=== PATIENT | male | born 1945 | race Hispanic/Latino ===

== ENCOUNTER 2019-02-21 12:21 | Emergency (ER) | payer BC, MEDICARE ==
--- NOTE | 2019-02-21 12:37 | Emergency Department Report ---
Blank Doc - Documentation Documentation: 73-year-old male that presents with dizziness. Denies any other symptoms. This initial assessment/diagnostic orders/clinical plan/treatment(s) is/are subject to change based on patient's health status, clinical progression and re- assessment by fellow clinical providers in the ED. Further treatment and workup at subsequent clinical providers discretion. Patient/guardians urged not to elope from the ED as their condition may be serious if not clinically assessed and managed. Initial orders include: 1- Patient sent to MAIN for further evaluation and treatment 2- labs 3- EKG 4- UA
[2019-02-21 13:18] LABS: Basophils # (Auto) 0.1 K/mm3 (0.0-0.1); Basophils % (Auto) 1.2 % (0.0-1.8); Eosinophils # (Auto) 0.2 K/mm3 (0.0-0.4); Hematocrit 40.6 % (35.5-45.6); Hemoglobin 13.6 gm/dl (11.8-15.2); Lymphocytes # (Auto) 2.2 K/mm3 (1.2-5.4); Lymphocytes % (Auto) 37.1 % (13.4-35.0); Mean Corpuscular HGB Conc 33 % (32-34); Mean Corpuscular Volume 83 fl (84-94); Monocytes # (Auto) 0.4 K/mm3 (0.0-0.8); Platelet Count 288 K/mm3 (140-440); Red Blood Count 4.92 M/mm3 (3.65-5.03); Red Cell Distribution Width 14.3 % (13.2-15.2)
--- NOTE | 2019-02-21 13:26 | XRay Report ---
CHEST 1 VIEW INDICATION: Lightheadedness/Dizziness. COMPARISON: None. FINDINGS: Support devices: None. Heart: Normal. Lungs/Pleura: No acute pulmonary or pleural findings. There are low lung volumes. IMPRESSION: 1. No acute findings. Signer Name: Erich Elizalde MD Signed: 02/21/2019 1:21 PM Workstation Name: [id number]
[2019-02-21 13:31] LABS: INR 1.05 (0.87-1.13)
[2019-02-21] MEDS ORDERED: MECLIZINE 25 MG TAB PO ONE (13:31)
[2019-02-21] MEDS ORDERED: ONDANSETRON 4 MG ODT TAB PO ONE (13:31)
[2019-02-21 13:34] VITALS: BP 133/67
[2019-02-21 13:42] LABS: Partial Thromboplastin Time 27.3 Sec. (24.2-36.6)
[2019-02-21 13:43] LABS: Alanine Aminotransferase 12 units/L (7-56); Albumin 4.3 g/dL (3.9-5); BUN/Creatinine Ratio 11; Blood Urea Nitrogen 10 mg/dL (9-20); Hemolysis Index 7
--- NOTE | 2019-02-21 13:57 | Cat Scan Report ---
CT HEAD WITHOUT CONTRAST INDICATION / CLINICAL INFORMATION: dizziness, blurry vision. TECHNIQUE: All CT scans at this location are performed using CT dose reduction for ALARA by means of automated e xposure control. COMPARISON: None available. FINDINGS: HEMORRHAGE: No evidence of intracranial hemorrhage or extra-axial fluid collection. EXTRA-AXIAL SPACES: Cortical sulci and sylvian fissures are mildly enlarged reflecting a degree of pa renchymal volume loss which is within normal limits for the patient's age of 73 years. Basilar cister ns have an unremarkable appearance. VENTRICULAR SYSTEM: The third and lateral ventricles are mildly enlarged reflecting resonance of age related parenchymal volume loss. Increased attenuation in the atria and temporal horns of both latera l ventricles is secondary to bilaterally symmetrical calcification of the choroid plexus. Similar fin dings are seen in the foramen of Luschka bilaterally. CEREBRAL PARENCHYMA: No significant areas of abnormal brain parenchymal attenuation are identified. T here is no indication of recent infarction. No areas of encephalomalacia are identified. MIDLINE SHIFT OR HERNIATION: There is no mass effect. CEREBELLUM / BRAINSTEM: Brainstem and cerebellum have an unremarkable appearance. INTRACRANIAL VESSELS:Calcified atherosclerotic plaque is present along the course of the cavernous se gments of both internal carotid arteries. ORBITS: The orbits have an unremarkable appearance. SOFT TISSUES of HEAD: No significant abnormality. CALVARIUM: Evaluation of bone windows reveals no abnormalities. PARANASAL SINUSES / MASTOID AIR CELLS: Paranasal sinuses are free from inflammatory mucosal disease. Mastoid air cells are normally pneumatized. IMPRESSION: 1. No acute intracranial abnormality. 2. Mild age-related involutional changes. Signer Name: Jonathan Barry MD Signed: 02/21/2019 1:53 PM Workstation Name: [id number]
--- NOTE | 2019-02-21 15:02 | Emergency Department Report ---
HPI - General Chief Complaint: Dizziness Time Seen by Provider: 02/21/19 12:35 - HPI HPI: 73-year-old male presents to the emergency department with a 4 day history of some dizziness that sounds like vertigo. The patient says that the room is spinning/moving and it makes him feel off balance. He denies any headache, nausea, vomiting, fever, chest pain, shortness of breath. The patient says that this is happened to him in the past. He previously had been given some medication for it by his PCP, Dr. Sepulveda, but does not have any of that medication at this time. He did go parts picker some Dramamine [id number] but that did not help with his symptoms. The patient describes his symptoms as "motion sickness." He denies any past medical history. No recent travel or sick contacts at home. ED Past Medical Hx - Past Medical History Previous Medical History?: No - Surgical History Additional Surgical History: lipoma removal from back - Social History Smoking Status: Never Smoker Substance Use Type: None - Medications Home Medications: Home Medications Medication Instructions Recorded Confirmed Last Taken Type traMADol [Ultram] 50 mg PO Q6HR PRN #20 tablet 12/21/13 Unknown Rx Meclizine [Antivert] 25 mg PO TID PRN #20 tablet 02/21/19 Unknown Rx ED Review of Systems ROS: Stated complaint: LIGHT HEADED/POOR VISION Other details as noted in HPI Comment: All other systems reviewed and negative Constitutional: denies: chills, fever Eyes: denies: eye pain ENT: denies: ear pain, throat pain Respiratory: denies: cough, shortness of breath Cardiovascular: denies: chest pain, palpitations Gastrointestinal: denies: abdominal pain, vomiting Genitourinary: denies: dysuria, discharge Musculoskeletal: denies: back pain, arthralgia Skin: denies: rash, lesions Neurological: vertigo. denies: headache, weakness Physical Exam - Physical Exam Vital Signs: Vital Signs 02/21/19 02/21/19 12:35 13:29 Temperature 97.6 F Pulse Rate 80 69 Respiratory 20 18 Rate Blood Pressure 128/93 Blood Pressure 133/67 [Left] O2 Sat by Pulse 96 99 Oximetry Physical Exam: GENERAL: The patient is well-developed well-nourished. HENT: Normocephalic. Atraumatic. Patient has moist mucous membranes. There is some fatigable horizontal nystagmus. EYES: Extraocular motions are intact. Pupils equal reactive to light bilaterally. NECK: Supple. Trachea is midline. CHEST/LUNGS: Clear to auscultation. There is no respiratory distress noted. HEART/CARDIOVASCULAR: Regular. There is no tachycardia. There is no murmur. ABDOMEN: Abdomen is soft, nontender. Patient has normal bowel sounds. There is no abdominal distention. SKIN: Skin is warm and dry. NEURO: The patient is awake, alert, and oriented. The patient is cooperative. The patient has no focal neurologic deficits. Normal speech. Cranial nerves II through XII grossly intact. No pronator drift. No dysmetria. No facial asymmetry. MUSCULOSKELETAL: There is no tenderness or deformity. There is no limitation range of motion. There is no evidence of acute injury. ED Course Vital Signs 02/21/19 02/21/19 12:35 13:29 Temperature 97.6 F Pulse Rate 80 69 Respiratory 20 18 Rate Blood Pressure 128/93 Blood Pressure 133/67 [Left] O2 Sat by Pulse 96 99 Oximetry ED Medical Decision Making - Lab Data Result diagrams: 02/21/19 12:50 02/21/19 12:50 - EKG Data -: EKG Interpreted by Me EKG shows normal: sinus rhythm, axis, intervals, QRS complexes, ST-T waves Rate: normal - EKG Data When compared to previous EKG there are: previous EKG unavailable Interpretation: normal EKG - Radiology Data Radiology results: report reviewed, image reviewed interpreted by me: Chest x-ray does not show any acute process. There are no pleural effusions, obvious pneumonia and there is no pneumothorax. CT HEAD WITHOUT CONTRAST INDICATION / CLINICAL INFORMATION: dizziness, blurry vision. TECHNIQUE: All CT scans at this location are performed using CT dose reduction for ALARA by means of automated exposure control. COMPARISON: None available. FINDINGS: HEMORRHAGE: No evidence of intracranial hemorrhage or extra-axial fluid collection. EXTRA-AXIAL SPACES: Cortical sulci and sylvian fissures are mildly enlarged reflecting a degree of parenchymal volume loss which is within normal limits for the patient's age of 73 years. Basilar cisterns have an unremarkable appearance. VENTRICULAR SYSTEM: The third and lateral ventricles are mildly enlarged reflecting resonance of age related parenchymal volume loss. Increased attenuation in the atria and temporal horns of both lateral ventricles is secondary to bilaterally symmetrical calcification of the choroid plexus. Similar findings are seen in the foramen of Luschka bilaterally. CEREBRAL PARENCHYMA: No significant areas of abnormal brain parenchymal attenuation are identified. There is no indication of recent infarction. No areas of encephalomalacia are identified. MIDLINE SHIFT OR HERNIATION: There is no mass effect. CEREBELLUM / BRAINSTEM: Brainstem and cerebellum have an unremarkable appearance. INTRACRANIAL VESSELS:Calcified atherosclerotic plaque is present along the course of the cavernous segments of both internal carotid arteries. ORBITS: The orbits have an unremarkable appearance. SOFT TISSUES of HEAD: No significant abnormality. CALVARIUM: Evaluation of bone windows reveals no abnormalities. PARANASAL SINUSES / MASTOID AIR CELLS: Paranasal sinuses are free from inflammatory mucosal disease. Mastoid air cells are normally pneumatized. IMPRESSION: 1. No acute intracranial abnormality. 2. Mild age-related involutional changes. - Medical Decision Making This patient presents to the emergency department with a complaint of dizziness that sounds more like a vertigo sensation. He feels like he is spinning and it worsens when he is ambulating or leaning forwards. He has no other neurological complaints or deficits. No focal, motor or sensory deficits and his cranial nerves are intact. Patient's labs are unremarkable. CT scan of the head without contrast does not show any bleed, shift, mass, ischemia, or any other acute process. He was given a dose of Antivert and reevaluated about 45 minutes to one hour later and says he is greatly improved. He was able to get up, ambulate, leaning forwards, and there was no return of the vertigo-like symptoms and the patient remained stable. He is a 0 on the NIH stroke scale. For all these reasons, the patient appears safe for discharge home at this time. He has been discharged home with a prescription for Antivert and instructions to follow-up with his primary care physician. He will return to the ER with any worsening of his symptoms or any acute distress. - Differential Diagnosis benign positional vertigo, malignancy, TIA, dysrhythmia Critical Care Time: No Critical care attestation.: If time is entered above; I have spent that time in minutes in the direct care of this critically ill patient, excluding procedure time. ED Disposition Clinical Impression: Dizziness, Vertigo Disposition: DC- TO HOME OR SELFCARE Is pt being admited?: No Condition: Stable Instructions: Vertigo (ED), Benign Paroxysmal Positional Vertigo (ED), Dizziness (ED) Additional Instructions: Please follow-up with Dr. Sepulveda in the next few days. Return to the emergency Department with any worsening of your symptoms or with any acute distress. Prescriptions: Meclizine [Antivert] 25 mg PO TID PRN #20 tablet PRN Reason: Vertigo Referrals: PRIMARY CARE, [Primary Care Provider] - 2-3 Days Time of Disposition: 15:20 - Assessment Assessment Interval: Baseline - Level of Consciousness 1a. Level of Consciousness: alert/keenly responsive - LOC Questions 1b. LOC Questions: answers both correctly - LOC Command 1c. LOC Commands: performs tasks correctly - Best Gaze 2. Best Gaze: normal - Visual 3. Visual: no visual loss - Facial Palsy 4. Facial Palsy: normal symmetrical movement - Motor Arm 5a. Motor Arm Left: no drift 5b. Motor Arm Right: no drift - Motor Leg 6a. Motor Leg Left: no drift 6b. Motor Leg Right: no drift - Limb Ataxia 7. Limb Ataxia: absent - Sensory 8. Sensory: normal - Best Language 9. Best Language: no aphasia - Dysarthria 10. Dysarthria: normal - Extinction and Inattention 11. Extinction/Inattention: no abnormality - Scoring Total Score: 0 Stroke Severity: No Stroke Symptoms
== END 2019-02-21 15:53 | disposition home or self-care (01) ==
LOC: ED 12:21
DX: R42 Dizziness and giddiness (principal); Z79.899 Other long term (current) drug therapy; Z88.8 Allergy status to other drugs, medicaments and biological substances
CPT/HCPCS: 36415; 70450; 71045; 80053; 82962; 84484; 85025; 85610; 85730; 93005; 93010; Q0162

== ENCOUNTER 2019-04-08 19:00 | Emergency (ER) | payer OTHER, MEDICARE ==
--- NOTE | 2019-04-08 23:13 | XRay Report ---
CHEST 2 VIEWS INDICATION / CLINICAL INFORMATION: cough. COMPARISON: 02/11/2019 FINDINGS: SUPPORT DEVICES: None. HEART / MEDIASTINUM: No significant abnormality. LUNGS / PLEURA: No significant pulmonary or pleural abnormality. No pneumothorax. ADDITIONAL FINDINGS: No significant additional findings. IMPRESSION: 1. No acute findings. Signer Name: Christiano Diaz MD Signed: 04/08/2019 11:09 PM Workstation Name: [id number]
--- NOTE | 2019-04-09 01:59 | Emergency Department Report ---
ED General Adult HPI - General Chief complaint: Chest Pain Stated complaint: CHEST PAIN/COLD SYM Time Seen by Provider: 04/09/19 01:56 Source: patient Mode of arrival: Ambulatory Limitations: No Limitations - History of Present Illness Initial comments: 73 y.o. male with no past medical history presents with the complaint of chest pain. Patient complains of a cough and burning across the chest. Patient states he has had the chest pain since . Patient state he has had a cough productive of yellow phlegm. Patient states he has had no vomiting. Patient state he has had no relief with TheraFlu and NyQuil therapy at home. Patient describes a burning across his chest. Patient denies diaphoresis. Patient denies any shortness of breath at current time. Severity scale (0 -10): 4 - Related Data Previous Rx's Medication Instructions Recorded Last Taken Type traMADoL [Ultram] 50 mg PO Q6HR PRN #20 tablet 12/21/13 Unknown Rx Meclizine [Antivert] 25 mg PO TID PRN #20 tablet 02/21/19 Unknown Rx Azithromycin [Zithromax Z-VIRGIL] 250 mg PO DAILY #6 tablet 04/09/19 Unknown Rx Allergies Allergy/AdvReac Type Severity Reaction Status Date / Time tb skin test Allergy Swelling Uncoded 12/21/13 06:40 ED Review of Systems ROS: Stated complaint: CHEST PAIN/COLD SYM Other details as noted in HPI Constitutional: denies: chills, fever Eyes: denies: eye pain, eye discharge, vision change ENT: denies: ear pain, throat pain Respiratory: cough Cardiovascular: chest pain Endocrine: no symptoms reported Gastrointestinal: denies: abdominal pain, nausea, diarrhea Genitourinary: denies: urgency, dysuria Musculoskeletal: denies: back pain, joint swelling, arthralgia Skin: denies: rash, lesions Neurological: denies: headache, weakness, paresthesias Psychiatric: denies: anxiety, depression Hematological/Lymphatic: denies: easy bleeding, easy bruising ED Past Medical Hx - Surgical History Additional Surgical History: lipoma removal from back - Social History Smoking Status: Never Smoker Substance Use Type: None - Medications Home Medications: Home Medications Medication Instructions Recorded Confirmed Last Taken Type traMADoL [Ultram] 50 mg PO Q6HR PRN #20 tablet 12/21/13 Unknown Rx Meclizine [Antivert] 25 mg PO TID PRN #20 tablet 02/21/19 Unknown Rx Azithromycin [Zithromax Z-VIRGIL] 250 mg PO DAILY #6 tablet 04/09/19 Unknown Rx ED Physical Exam - General Limitations: No Limitations General appearance: alert, in no apparent distress - Head Head exam: Present: atraumatic, normocephalic - Eye Eye exam: Present: normal appearance - ENT ENT exam: Present: mucous membranes moist - Neck Neck exam: Present: normal inspection - Respiratory Respiratory exam: Present: normal lung sounds bilaterally. Absent: respiratory distress - Cardiovascular Cardiovascular Exam: Present: regular rate, normal rhythm. Absent: systolic murmur, diastolic murmur, rubs, gallop - GI/Abdominal GI/Abdominal exam: Present: soft, normal bowel sounds - Rectal Rectal exam: Present: deferred - Extremities Exam Extremities exam: Present: normal inspection - Back Exam Back exam: Present: normal inspection - Neurological Exam Neurological exam: Present: alert, oriented X3 - Psychiatric Psychiatric exam: Present: normal affect, normal mood - Skin Skin exam: Present: warm, dry, intact, normal color. Absent: rash ED Course Vital Signs 04/08/19 04/09/19 04/09/19 20:48 01:55 02:36 Temperature 98.6 F 98.7 F Pulse Rate 82 75 Respiratory 18 18 18 Rate Blood Pressure 127/85 Blood Pressure 138/82 [Right] O2 Sat by Pulse 97 97 99 Oximetry 04/09/19 03:34 Temperature Pulse Rate 60 Respiratory 18 Rate Blood Pressure Blood Pressure 124/75 [Right] O2 Sat by Pulse 97 Oximetry ED Medical Decision Making - Lab Data Result diagrams: 04/09/19 02:24 04/09/19 02:24 - EKG Data -: EKG Interpreted by Me EKG shows normal: sinus rhythm Rate: normal - EKG Data When compared to previous EKG there are: no significant change - Medical Decision Making Patient is currently comfortable in no acute distress. Patient can't take enzymes are normal. Patient be treated as a bronchitis as an outpatient and given azithromycin therapy. - Differential Diagnosis STEMI; NSTEMI; Arryhtmia; Pneumonia; Electrolyte Abnormality; Anemia Critical care attestation.: If time is entered above; I have spent that time in minutes in the direct care of this critically ill patient, excluding procedure time. ED Disposition Clinical Impression: Bronchitis, Chest pain Disposition: DC-01 TO HOME OR SELFCARE Is pt being admited?: No Does the pt Need Aspirin: No Condition: Stable Instructions: Chronic Bronchitis (ED), Chest Pain (ED) Prescriptions: Azithromycin [Zithromax Z-VIRGIL] 250 mg PO DAILY #6 tablet Time of Disposition: 04:29 Print Language: CYPRIOT
[2019-04-09 03:36] VITALS: BP 124/75
[2019-04-09 03:56] LABS: Hemoglobin 13.5 gm/dl (11.8-15.2)
[2019-04-09 03:57] LABS: Hematocrit 41.3 % (35.5-45.6); Mean Corpuscular HGB Conc 33 % (32-34); Mean Corpuscular Volume 83 fl (84-94); Platelet Count 383 K/mm3 (140-440); Red Cell Distribution Width 14.1 % (13.2-15.2)
[2019-04-09 04:09] LABS: BUN/Creatinine Ratio 13; Blood Urea Nitrogen 10 mg/dL (9-20); Calcium 9.6 mg/dL (8.4-10.2)
[2019-04-09 04:10] LABS: Alanine Aminotransferase 17 units/L (7-56); Albumin 3.9 g/dL (3.9-5); Hemolysis Index 32
== END 2019-04-09 05:20 | disposition home or self-care (01) ==
LOC: ED 19:00
DX: J40 Bronchitis, not specified as acute or chronic (principal); Z88.7 Allergy status to serum and vaccine
CPT/HCPCS: 36415; 71046; 80053; 82550; 84484; 85027; 93005; 93010

== ENCOUNTER 2021-03-22 20:35 | Emergency (ER) | payer OTHER, MEDICARE | END 2021-03-22 21:59 | LOC: ED 20:35 | DX: Z04.3 Encounter for examination and observation following other accident (principal); Z53.21 Procedure and treatment not carried out due to patient leaving prior to being seen by health care provider ==